=== PATIENT | male | born 1995 | race Hispanic/Latino ===

== ENCOUNTER 2017-10-28 17:16 | Emergency (ER) | payer OTHER ==
[~2017-10-28] VITALS: Ht 177.8 cm; Wt 71.7 kg
[~2017-10-28 17:16] MED LIST: AUGMENTIN 875 M1 TAB PO; IBUPROFEN600 M1 PO; MOTRIN800 MG PO; VALIUM5 M2 PO; ZOFRAN4 M2 PO
[2017-10-28] MEDS ORDERED: AMOXICILLIN875 M1 PO (19:46)
--- NOTE | 2017-10-28 19:46 | ED THROAT/DENTAL COMPLAINT ---
History of Present Illness General Chief Complaint: Sore Throat, Dental Pain Stated Complaint: COUGH AND SORE THROAT Source: patient Exam Limitations: no limitations Vital Signs & Intake/Output Vital Signs & Intake/Output Vital Signs Date Time Temp Pulse Resp B/P B/P Pulse O2 O2 Flow FiO2 Mean Ox Delivery Rate 10/28 2010 97.0 100 18 118/78 98 Room Air 10/28 1723 98.4 106 18 128/82 98 Room Air Allergies Coded Allergies: No Known Allergies (10/31/16) Reconcile Medications Amoxicillin 875 MG TABLET 1 TAB PO BID SINUSITIS Ondansetron HCl (Zofran) 4 MG TABLET 1 TAB PO Q6-8P PRN NAUSEA Triage Note: PT STATES HIS THROAT HURTS AND HE FEELS CONGESTED PT STATSE THIS HAS BEEN GOING ON FOR THE PAST THREE DAYS,. Triage Nurses Notes Reviewed? yes Onset: Abrupt Duration: day(s): Timing: recent history Severity: mild, moderate No Modifying Factors: none HPI: 22-year-old male comes into the emergency room for further evaluation of sore throat and sinus congestion and runny nose. Symptoms going on for past couple days. Denies any fever. Denies any vomiting. Comes in for further evaluation. (Taras Peters) Past History Travel History Traveled to [place] past 21 day No Medical History Any Pertinent Medical History? see below for history Neurological: CONCUSSION EENT: NONE Cardiovascular: NONE Respiratory: NONE Gastrointestinal: NONE Hepatic: NONE Renal: NONE Musculoskeletal: IAN ROTATOR CUFFS FLUID IN KNEE SPRAINED ANKLE THUMB SPRAIN Psychiatric: NONE Endocrine: NONE Blood Disorders: NONE Cancer(s): NONE ANALYTICS ARCHITECT/Reproductive: NONE Surgical History Surgical History: appendectomy, N Psychosocial History What is your primary language Italian Tobacco Use: Current Daily Use Daily Tobacco Use Amount/Type: => 5 Cigarettes daily ETOH Use: denies use Illicit Drug Use: denies illicit drug use Family History Hx Contributory? No (Taras Peters) Review of Systems Review of Systems Constitutional: Reports: no symptoms. EENTM: Reports: see HPI. Respiratory: Reports: see HPI. Cardiovascular: Reports: no symptoms. GI: Reports: no symptoms. Genitourinary: Reports: no symptoms. Musculoskeletal: Reports: no symptoms. Skin: Reports: no symptoms. Neurological/Psychological: Reports: no symptoms. Hematologic/Endocrine: Reports: no symptoms. Immunologic/Allergic: Reports: no symptoms. All Other Systems: Reviewed and Negative (Taras Peters) Physical Exam Physical Exam General Appearance: well developed/nourished, no apparent distress, alert, awake Head: atraumatic, normal appearance Eyes: Bilateral: normal appearance. Ears: Bilateral: canal normal. Nose: normal inspection, sinus congestion Mouth/Throat: normal mouth inspection, pharynx normal, uvula midline Neck: normal inspection Cardiovascular/Respiratory: normal breath sounds, no respiratory distress Back: normal inspection Neurologic/Psych: awake, alert, oriented x 3 Skin: intact, normal color Core Measures ACS in differential dx? No Sepsis Present: No Sepsis Focused Exam Completed? No (Taras Peters) Progress Differential Diagnosis: dawna-tonsillar abscess, strep pharyngitis, sinusitis, strep throat, URI, Plan of Care: Orders Procedure Date/time Status THROAT CULTURE W/QUICK STREP 10/28 3181 Active Comments: 10/28/2017 9:51:05 PM Symptoms are most consistent with sinusitis. Treated symptomatically. (Taras Peters) Departure Departure Disposition: HOME OR SELF CARE Condition: Stable Clinical Impression Primary Impression: Sinusitis Referrals: Patient Has No Primary Care Dr (PCP/Family) Additional Instructions: Take amoxicillin as prescribed. Follow-up with your primary care doctor. Return if any concerns worsening symptoms. Please go over all results of today's visit with your primary care doctor. Contact your primary care doctor to let them know you were here in the emergency room. There may be nonspecific findings which may not be related to your visit today here in the emergency room but may require further evaluation and chronic monitoring by your primary care doctor. If you had a laceration today the chance of foreign body always remains. You should follow-up with your primary care doctor for recheck in 3-5 days for a wound check. If you had an x-ray done there is a chance that a fracture could have been missed on initial read and you should follow-up with your primary care doctor for repeat x-rays if symptoms persist. If your blood pressure was elevated here in the emergency room please have rechecked by [facility] primary care doctor within the next 48. If you were prescribed a narcotic here in the emergency room or any type of controlled substances you're not allowed to drive while taking this medication or operate any type of heavy machinery. Narcotics can make you feel lightheaded dizziness nausea and can cause constipation. You may need to olive picker a stool softener. Thank you for choosing [facility] emergency room. Please return to the emergency room immediately if you have any other concerns worsening of symptoms. Departure Forms: Customer Survey General Discharge Information Prescriptions: Current Visit Scripts Amoxicillin 1 TAB PO BID #20 TAB (Taras Peters) PA/RN [facility] Co-Sign Statement Statement: ED Attending supervision documentation- [] I saw and evaluated the patient. I have also reviewed all the pertinent lab results and diagnostic results. I agree with the findings and the plan of care as documented in the PA's/RN [facility]'s documentation. [X] I have reviewed the ED Record and agree with the PA's/RN [facility]'s documentation. [] Additions or exceptions (if any) to the PAs/RN [facility]'s note and plan are summarized below: [] (Albin GUZMAN,Dallin Sanon)
[2017-10-28 20:11] VITALS: BP 118/78
== END 2017-10-28 20:10 ==
LOC: ERH 17:16
DX: J32.9 Chronic sinusitis, unspecified (principal); F17.210 Nicotine dependence, cigarettes, uncomplicated

== ENCOUNTER 2018-02-03 23:30 | Emergency (ER) | payer OTHER ==
[~2018-02-03] VITALS: Ht 177.8 cm; Wt 71.2 kg
[~2018-02-03 23:30] MED LIST changes: +AMOXICILLIN875 M1 PO
--- NOTE | 2018-02-04 00:08 | ED GENERAL ADULT ---
History of Present Illness General Chief Complaint: Nausea, Vomiting, Diarrhea Stated Complaint: PT C/O VOMITING , BRADEN X'S 1 HR Source: patient Exam Limitations: no limitations Vital Signs & Intake/Output Vital Signs & Intake/Output Vital Signs Date Time Temp Pulse Resp B/P B/P Pulse O2 O2 Flow FiO2 Mean Ox Delivery Rate 02/03 2354 Room Air 02/03 2339 98.1 86 18 143/76 97 Room Air ED Intake and Output 02/04 0000 02/03 1200 Intake Total Output Total Balance Patient 157 lb Weight Weight Reported by Patient Measurement Method Allergies Coded Allergies: No Known Allergies (02/03/18) Reconcile Medications Amoxicillin 875 MG TABLET 1 TAB PO BID SINUSITIS Ondansetron HCl (Zofran) 4 MG TABLET 1 TAB PO Q6-8P PRN NAUSEA Triage Note: TRIAGE: PATIENT TO ER FROM HOME REPORTING BRADEN SINCE 5PM, VOMITTING X 1-2 HOURS AGO AND NOW HAVING GENERALIZED ABD PAIN. Triage Nurses Notes Reviewed? yes HPI: 22-year-old male with no past medical history presents with 7 hours of occipital headache and 2 hours of abdominal pain with nausea and vomiting. Negative for trauma. Past surgical history positive for appendectomy. Single episode of vomiting that was bloody in nature. Denies alcohol and illicit substance use. Positive for tobacco use. Negative for photophobia. Negative for recent illness. Negative for constipation diarrhea. Past History Travel History Traveled to [place] past 21 day No Medical History Any Pertinent Medical History? see below for history Neurological: CONCUSSION EENT: NONE Cardiovascular: NONE Respiratory: NONE Gastrointestinal: NONE Hepatic: NONE Renal: NONE Musculoskeletal: IAN ROTATOR CUFFS FLUID IN KNEE SPRAINED ANKLE THUMB SPRAIN Psychiatric: NONE Endocrine: NONE Blood Disorders: NONE Cancer(s): NONE MANAGER PORTABLE/Reproductive: NONE Surgical History Surgical History: appendectomy, N Psychosocial History What is your primary language Kyrgyz Tobacco Use: Current Daily Use Daily Tobacco Use Amount/Type: => 5 Cigarettes daily Family History Hx Contributory? No Review of Systems Review of Systems Constitutional: Reports: no symptoms, see HPI. EENTM: Reports: no symptoms. Respiratory: Reports: no symptoms. Cardiovascular: Reports: no symptoms. GI: Reports: no symptoms. Genitourinary: Reports: no symptoms. Musculoskeletal: Reports: no symptoms. Skin: Reports: no symptoms. Neurological/Psychological: Reports: no symptoms. Hematologic/Endocrine: Reports: no symptoms. Immunologic/Allergic: Reports: no symptoms. All Other Systems: Reviewed and Negative Physical Exam Physical Exam General Appearance: well developed/nourished, comfortable Comments: Gen.: Well-nourished, well-developed, no acute respiratory distress. Head: Normocephalic, atraumatic. Eyes: Normal inspection bilaterally Ears: Normal inspection bilaterally Nose: Normal inspection Throat/mouth : Moist mucosa Neck: Supple, full range of motion, no goiter Heart: Regular rate and rhythm, no murmurs rubs or gallops Lungs: Clear to auscultation bilaterally with normal air entry Chest: Nontender Back: Normal range of motion Abdomen: Soft, generalized tenderness, nondistended, negative rebound and guarding Extremities: Normal range of motion grossly, equal radial pulses, no cyanosis clubbing or edema Neurologic: Cranial nerves grossly intact, speech is clear Skin: warm and dry Psychiatric: Calm, cooperative, no apparent delusions or hallucinations Core Measures ACS in differential dx? No CVA/TIA Diagnosis: No Sepsis Present: No Sepsis Focused Exam Completed? No Progress Differential Diagnoses I considered the following diagnoses in my evaluation of the patient: Appendicitis-the patient did not have migration of the pain to the right lower quadrant, tenderness over McBurney's point, Rovsing sign, white cell blood count was not elevated, and the diagnostic imaging studies did not confirm this Peritonitis-the patient had no rebound or guarding, did not have a rigid abdomen , the white blood cell count was not elevated and There was no inflammatory process on diagnostic imaging studies. Cholecystitis-the patient had no Sotelo's sign on exam, white blood cell count was normal, and diagnostic imaging studies showed no inflammatory changes in the region of the gallbladder Pancreatitis-the lipase was normal, patient had no history of alcohol abuse or hypertriglyceridemia, but the diagnostic imaging studies did not show inflammation or edema in the area of the pancreas GI bleed-patient had no history of prior GI bleed, patient denied consistent use of NSAIDs, the patient is not taking anticoagulants such as Coumadin, the patient denied melena. AAA-the patient has a paucity of significant risk factors for vascular disease, there is no pulsatile abdominal mass, lower extremity pulses were equal Hernia-there were no apparent hernias on physical examination, the patient denied any unusual bulges or masses Ischemic bowel-the patient has a paucity of risk factors for vascular disease or thrombosis, physical examination did not reveal pain out of proportion to physical exam findings, diagnostic imaging studies were inconsistent with bowel ischemia Bowel obstruction-patient's abdomen was not significantly distended or hypertympanitic, patient had good bowel sounds, patient was having bowel movements and passing flatus. Plan of Care: Orders Procedure Date/time Status LACTIC ACID 02/04 0303 Active LIPASE 02/04 3 Complete LACTIC ACID 02/04 3 Complete COMPREHENSIVE METABOLIC PANEL 02/04 3 Complete CBC WITHOUT DIFFERENTIAL 02/04 3 Complete Laboratory Tests 02/04/18 0032: Anion Gap 10, Estimated GFR > 60, BUN/Creatinine Ratio 18.9, Glucose 123 H, Lactic Acid 1.5, Calcium 9.9, Total Bilirubin 0.4, AST 32, ALT 46, Alkaline Phosphatase 68, Total Protein 7.7, Albumin 4.7, Globulin 3.0, Albumin/Globulin Ratio 1.6, Lipase 35, CBC w Diff NO MAN DIFF REQ, RBC 5.21, MCV 88.5, MCH 30.7, MCHC 34.7, RDW 12.7, MPV 8.1, Gran % 70.0, Lymphocytes % 19.6 L, Monocytes % 4.5, Eosinophils % 5.1 H, Basophils % 0.8, Absolute Granulocytes 8.4 H, Absolute Lymphocytes 2.4, Absolute Monocytes 0.5, Absolute Eosinophils 0.6, Absolute Basophils 0.1 Initial ED EKG: none Comments: Positive response to Reglan and Benadryl regarding headache. Negative for episode of hematemesis during emergency department course. Spoke with patient regarding elevated white count with normal lactic acid. Departure Departure Disposition: HOME OR SELF CARE Condition: Stable Clinical Impression Primary Impression: Hematemesis Qualifiers: Nausea presence: unspecified Qualified Code: K92.0 - Hematemesis Secondary Impressions: Headache Qualifiers: Headache type: unspecified Headache chronicity pattern: acute headache Intractability: not intractable Qualified Code: R51 - Headache Referrals: Patient Has No Primary Care Dr (PCP/Family) Berlin Sanchez MD Departure Forms: Customer Survey General Discharge Information Comments Please note that there might be incidental findings in your evaluation that are unrelated to the current emergency department visit. Please notify your primary care doctor about this emergency department visit in order to obtain and review all of the testing performed so that these incidental findings can be monitored as needed. If you had an x-ray performed, please understand that some fractures may not be seen on the initial set of x-rays. If your symptoms persist you might need a repeat set of x-rays to check for such a fracture. If you had a laceration evaluated, please understand that foreign bodies such as glass or wood may not be visible to the naked eye or on plain x-rays. If the wound becomes red, swollen, increasingly more painful or if there is any drainage from the wound, please have it reevaluated by a physician for the possibility of a retained foreign body. If you're unable to follow up as outlined in the discharge instructions please return to the emergency department. Critical Care Note Critical Care Note Critical Care Time: non-applicable
[2018-02-04 00:40] LABS: ABSOLUTE BASOPHIL COUNT 0.1 /CUMM (0.0-0.2); ABSOLUTE EOSINOPHIL COUNT 0.6 /CUMM (0.0-0.7); ABSOLUTE GRANULOCYTE CT 8.4 /CUMM (1.4-6.5); ABSOLUTE LYMPH COUNT 2.4 /CUMM (1.2-3.4); ABSOLUTE MONOCYTE COUNT 0.5 /CUMM (0.10-0.60); BASOPHIL % 0.8 % (0.0-2.0); EOSINOPHIL % 5.1 % (0-5); HEMATOCRIT 46.1 % (42-52); MEAN CORPUSCULAR HGB 30.7 PG (27.0-31.0); MEAN CORPUSCULAR HGB CONC 34.7 G/DL (33.0-37.0); MEAN CORPUSCULAR VOLUME 88.5 FL (80.0-94.0); MEAN PLATELET VOLUME 8.1 FL (7.4-10.4); PLATELET COUNT 245 /CUMM (130-400); RBC DISTRIBUTION WIDTH 12.7 % (11.5-14.5); RED BLOOD CELL CT 5.21 /CUMM (4.70-6.10)
[2018-02-04 01:15] VITALS: BP 132/70
== END 2018-02-04 01:16 ==
LOC: ERH 23:30
PROVIDERS: Emergency Medicine
DX: K92.0 Hematemesis (principal); R51 Headache; R10.9 Unspecified abdominal pain; F17.210 Nicotine dependence, cigarettes, uncomplicated
CPT/HCPCS: 96372; J1200; J2765